=== PATIENT | female | born 1995 | race Caucasian/White ===

== ENCOUNTER 2018-10-12 20:22 | Emergency (ER) | payer BC ==
[~2018-10-12] VITALS: Ht 165.1 cm; Wt 78.3 kg
[~2018-10-12 20:22] MED LIST: ELEC100095 PO; LOPE2CAP PO; METO10TA92 PO
[2018-10-12 20:37] VITALS: Ht 165.1 cm; Wt 78.3 kg
[2018-10-12] MEDS ORDERED: ONDANSETRON 4 MG INJ IV STA (21:21)
[2018-10-12] MEDS ORDERED: SOD CHLORIDE 0.9% 1,000 ML IV ONE ×2 (21:30→23:30)
[2018-10-12] MEDS ORDERED: METOCLOPRAMIDE 10 MG INJ IV ONE (21:30)
[2018-10-12] MEDS ORDERED: ONDANSETRON (ODT) 4 MG TAB ODT STA (22:59)
[2018-10-13 01:26] VITALS: BP 109/65; PULSE 113; RESP 15
== END 2018-10-13 01:31 | disposition home or self-care (01) ==
LOC: FTE 20:22
DX: K52.9 Noninfective gastroenteritis and colitis, unspecified (principal); J45.909 Unspecified asthma, uncomplicated
CPT/HCPCS: 36415; 76705; 80053; 81003; 81025; 83690; 85025; 96361; 96374; 96375; J2405; J2765; J7030; Z7502; Z7610